=== PATIENT | male | born 1960 | race Caucasian/White ===

== ENCOUNTER 2017-09-14 07:15 | Day surgery (SDC) | payer OTHER ==
[~2017-09-14 07:15] MED LIST: BUPIVACAINE HCL 0.75% INJ/PF (7.5 MG/1 ML) 10 ML SDV OD PRN; KETOROLAC TROMETHAMINE 0.45% 4 DROP/0.4 ML DROPERETTE OD PRN; LIDOCAINE 4% INJ/PF (40 MG/ML) 5 ML AMPUL OD PRN
[2017-09-14] MEDS ORDERED: PHENYLEPHRINE/KETOROLAC 1%-0.3% 4 ML VIAL ONE (07:31)
[2017-09-14] MEDS ORDERED: CHONDR SU A NA/HYALUR INTRAOC KIT (SURGICARE) ONE (07:32)
[2017-09-14] MEDS ORDERED: TRYPAN BLUE 0.06 % OPH SOLN 0.5 ML DISP.SYRIN ONE (07:32)
[2017-09-14] MEDS: BESIFLOXACIN HCL 0.6% OPH SUSP 5 ML BOTTLE OD PRN ×3 (07:48→08:42)
[2017-09-14] MEDS: TROPICAMIDE 1% OPH SOLN 3 ML OD PRN ×3 (07:48→08:08)
[2017-09-14] MEDS: CYCLOPENTOLATE 0.2%/PHENYLEPHRINE 1% OPH SOLN 2 ML OD PRN ×3 (07:48→08:08)
[2017-09-14] MEDS: TETRACAINE HCL 0.5% OPH SOLN 0.6 ML DROPERETTE OD PRN ×2 (07:49→08:08)
[2017-09-14] MEDS ORDERED: FENTANYL CITRATE INJ/PF 100 MCG/2 ML AMPUL ONE (08:07)
[2017-09-14] MEDS ORDERED: MIDAZOLAM 2 MG/2 ML INJ ONE (08:07)
--- NOTE | 2017-09-14 08:53 | [facility] OPERATIVE REPORT E ---
[facility] Operative Report NAME: CASA GALVAN AGE: 57Y DATE OF SURGERY: 09/14/2017 ROOM: PREOPERATIVE DIAGNOSIS: Cataract, right eye. POSTOPERATIVE DIAGNOSIS: Cataract, right eye. OPERATION: Phacoemulsification with posterior chamber intraocular lens, right eye. SURGEON: BRI MEJIA M.D. ANESTHESIA: Topical with MAC. INDICATIONS FOR SURGERY: Difficulty with depth perception, unable to read. Best corrected visual acuity 2200. PROCEDURE: The patient was brought to the Operating Room and placed on the operative table. Following tetracaine drops, topical anesthesia was administered. This consisted of instrument wipe pledgets soaked in a solution of 4% Xylocaine mixed with 0.75% Marcaine in a 1:2 ratio. A 2 x 1 cm pledget was placed in the superior fornix. A 1 x 1 cm pledget was placed in the inferior fornix. The eye was patched shut for 5 minutes. The patch was removed. The eye was sterilely prepped and draped in the usual manner. Lid speculum was placed in the eye. The pledgets were removed. 4-0 black silk sutures were placed around the superior and the inferior rectus muscles to be used as traction. A conjunctival peritomy was made at the 10 o'clock position. Hemostasis was obtained with bipolar cautery. A posterior limbal groove was created using a crescent knife and dissected anteriorly towards the cornea. A sharp point blade was used to create a paracentesis site at the 2 o'clock position. A 2.4 mm keratome was used to enter the anterior chamber through the groove. Viscoelastic was injected into the anterior chamber. An anterior capsulotomy was performed using Utrata forceps in a capsulorrhexis fashion. Hydrodissection and hydrodelineation were performed. Phacoemulsification was performed in kzcgkq-ygc-bxlwsey technique. A total of 19.17 CDE phaco time was used. Following this, the I/A unit was used to remove residual cortex. Viscoelastic was injected into the capsular bag. Intraocular lens model SN60WF, 17.5 diopters, serial number [id number] was placed in the capsular bag. The I/A unit was used to remove residual viscoelastic. The wound was seen to be watertight under high and low pressure, and no sutures were placed. The intraocular lens was well centered. The pressure was adjusted in the eye to normal pressure. The 4-0 black silk sutures and lid speculum were removed. The eye was shielded after Besivance drops were placed. The patient tolerated the procedure well and was sent to the Recovery Room in good condition. DICTATING PHYSICIAN: BRI MEJIA M.D. [id number] PHY#: [id number] ID: [id number] JOB#: [id number] ACCT: [id number] cc:BRI MEJIA M.D. >
--- NOTE | 2017-09-14 08:56 | [facility] DISCHARGE SUMMARY E ---
[facility] Discharge Summary NAME: CASA GALVAN AGE: 57Y ADMITTED: 09/14/2017 DISCHARGED: 09/14/2017 HOSPITAL COURSE: The patient is a 57-year-old gentleman who underwent uneventful cataract extraction with intraocular lens implant, right eye, on 09/14/2017. He will be discharged to home. He is instructed to resume preoperative medications, take Tylenol as needed for discomfort, to keep his eye shielded, to use Vigamox, Durezol, Ilevro at 3 p.m. and 8 p.m., and to follow up in my office today at 3:15. DICTATING PHYSICIAN: BRI MEJIA M.D. [id number] PHY#: [id number] ID: [id number] JOB#: [id number] ACCT: [id number] cc:BRI MEJIA M.D. >
[2017-09-14] MEDS ORDERED: KETOROLAC TROMETHAMINE 0.45% 4 DROP/0.4 ML DROPERETTE OD ONE (09:00)
== END 2017-09-14 09:35 | disposition home or self-care (01) ==
LOC: SC 07:15
PROVIDERS: ATTEND Ophthalmology
PROC: 08RJ3JZ Replacement of Right Lens with Synthetic Substitute, Percutaneous Approach (ICD-10-PCS; principal; 2017-09-14 08:15)
DX: H25.89 Other age-related cataract (principal); H40.013 Open angle with borderline findings, low risk, bilateral; H43.812 Vitreous degeneration, left eye; Z96.1 Presence of intraocular lens; C85.90 Non-Hodgkin lymphoma, unspecified, unspecified site
CPT/HCPCS: 66984; V2632; J2250; J3490 ×3; J3010; 142; C9447